=== PATIENT | male | born 1995 | race Native Hawaiian/Other Pacific Islander ===

== ENCOUNTER 2021-08-28 05:12 | Emergency (ER) | payer OTHER ==
[2021-08-28] MEDS ORDERED: KETAMINE 500 MG/10 ML VIAL IM STA (05:21)
--- NOTE | 2021-08-28 05:26 | ED Physician Documentation ---
Face to Face for Restraints - Immediate Situation Face to Face Evaluation Date: 08/28/21 Face to Face Evaluation Time: 05:24 Restraint Situation: Locking, Chemical Patient's Reactions to the Intervention: Fighting restraints, Screaming/Yelling, Demanding - Behavioral Condition Attitude: Guarded Behavior: Uncooperative, Agitated Orientation: Person, Place Mood: Labile - Evaluation Review of Systems: no apparent injuries. SOme slurring of speech. unlabored breathing. No vomiting. Pertinent History/Illicit Drugs/Medications/Results: Intoxicated and depressed from bad news. Threatened to jump off bridge. - Plan Need to Continue or Terminate Violent or Chemical Restraint: See improvement with meds and time.
[2021-08-28 05:40] LABS: BILIRUBIN,URINE NEGATIVE (NEGATIVE); GLUCOSE, URINE (UA) NEGATIVE (NEGATIVE); KETONES,URINE (UA) NEGATIVE (NEGATIVE); LEUKOCYTE ESTERASE, URINE NEGATIVE (NEGATIVE); MUDS CUTOFF CONCENTRATIONS CUTOFF CONC BELOW:; NITRITE,URINE NEGATIVE (NEGATIVE); OCCULT BLOOD,URINE NEGATIVE (NEGATIVE); PROTEIN,URINE NEGATIVE (NEGATIVE); UROBILINOGEN,URINE 0.2 (NORMAL) E.U./dL (NORMAL)
[2021-08-28 05:42] LABS: CLARITY,URINE CLEAR (CLEAR)
[2021-08-28 05:44] LABS: BASOPHILS # (AUTO) 0.1 10^3/uL (0.0-0.1); BASOPHILS % (AUTO) 0.8 %; EOSINOPHILS # (AUTO) 0.1 10^3/uL (0.0-0.7); EOSINOPHILS % (AUTO) 0.8 %; HCT - HEMATOCRIT 42.6 % (42.0-52.0); HGB - HEMOGLOBIN 14.2 g/dL (14.0-18.0); LYMPHOCYTES # (AUTO) 2.8 10^3/uL (1.5-3.5); MEAN CORPUSCULAR HEMOGLOBIN 31.3 pg (27.0-31.0); MEAN CORPUSCULAR HGB CONC 33.3 g/dL (32.0-36.0); MEAN CORPUSCULAR VOLUME 93.8 fL (80.0-94.0); MEAN PLATELET VOLUME 10.4 fL (7.4-11.4); MONOCYTES # (AUTO) 0.8 10^3/uL (0.0-1.0); MONOCYTES % (AUTO) 9.5 %; NEUTROPHILS # (AUTO) 4.7 10^3/uL (1.5-6.6); NEUTROPHILS % (AUTO) 55.5 %; PLT - PLATELET COUNT 242 10^3/uL (130-450); RED BLOOD COUNT 4.54 10^6/uL (4.70-6.10); RED CELL DISTRIBUTION WIDTH 13.5 % (12.0-15.0); WHITE BLOOD COUNT 8.5 x10^3/uL (4.8-10.8)
[2021-08-28 05:50] LABS: AMPHETAMINE SCREEN,URINE NEGATIVE (NEGATIVE); BARBITURATE SCREEN,UR NEGATIVE (NEGATIVE); BENZODIAZEPINES SCREEN, URINE NEGATIVE (NEGATIVE); COCAINE SCREEN URINE NEGATIVE (NEGATIVE); METHADONE SCREEN, URINE NEGATIVE (NEGATIVE); METHAMPHETAMINES SCREEN, URINE NEGATIVE (NEGATIVE); OPIATE SCREEN, URINE NEGATIVE (NEGATIVE); OXYCODONE SCREEN, URINE NEGATIVE (NEGATIVE); PROPOXYPHENE SCREEN, URINE NEGATIVE (NEGATIVE); THC CANNABINOID SCREEN, URINE NEGATIVE (NEGATIVE); TRICYCLIC ANTIDEPRESSANT,URINE NEGATIVE (NEGATIVE)
[2021-08-28 06:06] LABS: ACETAMINOPHEN < 10 ug/mL (10-30); ALBUMIN 4.6 g/dL (3.2-5.5); ALBUMIN/GLOBULIN RATIO 1.5 (1.0-2.2); ALKALINE PHOSPHATASE 56 IU/L (42-121); ALT ALANINE AMINOTRANSFERASE 22 IU/L (10-60); AST ASPARTATE AMINOTRANSFERASE 30 IU/L (10-42); BILIRUBIN,TOTAL 0.6 mg/dL (0.2-1.0); BUN - BLOOD UREA NITROGEN 13 mg/dL (6-20); CALCIUM 8.7 mg/dL (8.5-10.3); CARBON DIOXIDE - CO2 24 mmol/L (21-32); CHLORIDE 103 mmol/L (101-111); CREATININE 1.1 mg/dL (0.6-1.2); ETOH - ETHANOL 260.9 mg/dL; GFR - MDRD 81 (>89); GLUCOSE 104 mg/dL (70-100); LIPASE 27 U/L (22-51); SALICYLATE < 6.0 mg/dL; SODIUM 142 mmol/L (135-145); TOTAL PROTEIN 7.7 g/dL (6.7-8.2)
--- NOTE | 2021-08-28 06:34 | ED Physician Documentation ---
PD HPI MHE - Stated complaint Stated Complaint: SI/ETOH - Chief complaint Chief Complaint: MHE - History obtained from History obtained from: Patient, EMS - History of Present Illness Primary symptom: Suicidal ideation, Aggressive behavior, Other (intoxicated) Timing - onset: How many hours ago (few), Today Contributing factors: Sig other, Other (Report is patient got letter from his girlfriend that she was breaking up with him. He got drunk and expressed suicidality that he was going to go to the bridge and jump off. Brought by EMS. Combative en route and needed restraints and chemical sedation. no history of depression.). No: Substance abuse - ETOH, Substance abuse - drugs Similar symptoms before: Has not had sx before Recently seen: Not recently seen Review of Systems Unable to obtain: Intoxicated, Uncooperative Respiratory: denies: Dyspnea GI: denies: Vomiting Skin: denies: Laceration (s) Neurologic: denies: Head injury PD PAST MEDICAL HISTORY - Past Medical History Cardiovascular: None Respiratory: None Neuro: None Endocrine/Autoimmune: None - Present Medications Home Medications: Ambulatory Orders Medication Instructions Recorded Confirmed No Known Home Medications 08/28/21 08/28/21 - Allergies Allergies/Adverse Reactions: Allergies Allergy/AdvReac Type Severity Reaction Status Date / Time Unable to Assess Allergy Verified 08/28/21 05:31 PD ED PE NORMAL - Vitals Vital signs reviewed: Yes - General General: Well developed/nourished, Other. No: Alert and oriented X 3 (some slurring speech c/w intoxicated. Labile emotions of calm then fighting against restraints, biting at them. Worked loose from one wrist and was grabbing at other restraint and providers. Trying to sit up and rock the cart. Not receptive to verbal de-escalation or calming. ) - HEENT HEENT: Atraumatic - Neck Neck: Supple, no meningeal sign, No adenopathy - Cardiac Cardiac: RRR, No murmur - Respiratory Respiratory: Clear bilaterally - Abdomen Abdomen: Soft, Non tender, Non distended - Derm Derm: Normal color, Warm and dry - Neuro Neuro: No: Alert and oriented X 3 (oriented to person and perceives he is in an ER. Not aware of time/month or at least not focused enough to answer. ) Eye Opening: Spontaneous Motor: Localizes to Pain Verbal: Confused GCS Score: 13 Results - Vitals Vitals: Vital Signs - 24 hr 10/08/21 10/08/21 10/08/21 05:20 05:24 05:28 Temperature 97.1 C H Heart Rate 95 102 H 122 H Respiratory 18 18 22 Rate Blood Pressure 147/96 H 160/95 H O2 Saturation 95 98 96 08/28/21 08/28/21 08/28/21 05:36 05:42 06:36 Temperature 98.8 C H Heart Rate 106 H 115 H Respiratory 14 20 17 Rate Blood Pressure 158/96 H 158/98 H 123/73 O2 Saturation 95 95 93 08/28/21 07:06 Temperature Heart Rate 110 H Respiratory Rate Blood Pressure 117/68 O2 Saturation Oxygen O2 Source Room air - Labs Labs: Laboratory Tests 08/28/21 08/28/21 08/28/21 05:35 05:36 05:36 WBC 8.5 RBC 4.54 L Hgb 14.2 Hct 42.6 MCV 93.8 MCH 31.3 H MCHC 33.3 RDW 13.5 Plt Count 242 MPV 10.4 Neut # (Auto) 4.7 Lymph # (Auto) 2.8 [place] # (Auto) 0.8 Eos # (Auto) 0.1 Baso # (Auto) 0.1 Absolute Nucleated RBC 0.00 Nucleated RBC % 0.0 Sodium 142 Potassium 3.0 L Chloride 103 Carbon Dioxide 24 Anion Gap 15.0 H BUN 13 Creatinine 1.1 Estimated GFR (MDRD) 81 L Glucose 104 H Calcium 8.7 Total Bilirubin 0.6 AST 30 ALT 22 Alkaline Phosphatase 56 Total Protein 7.7 Albumin 4.6 Globulin 3.1 Albumin/Globulin Ratio 1.5 Lipase 27 TSH Urine Color COLORLESS Urine Clarity CLEAR Urine pH 6.0 Ur Specific [place] <=1.005 Urine Protein NEGATIVE Urine Glucose (UA) NEGATIVE Urine Ketones NEGATIVE Urine Occult Blood NEGATIVE Urine Nitrite NEGATIVE Urine Bilirubin NEGATIVE Urine Urobilinogen 0.2 (NORMAL) Ur Leukocyte Esterase NEGATIVE Ur Microscopic Review NOT INDICATED Urine Culture Comments NOT INDICATED Salicylates < 6.0 Urine Opiates Screen NEGATIVE Ur Oxycodone Screen NEGATIVE Urine Methadone Screen NEGATIVE Ur Propoxyphene Screen NEGATIVE Acetaminophen < 10 L Ur Barbiturates Screen NEGATIVE Ur Tricyclics Screen NEGATIVE Ur Phencyclidine Scrn NEGATIVE Ur Amphetamine Screen NEGATIVE U Methamphetamines Scrn NEGATIVE U Benzodiazepines Scrn NEGATIVE Urine Cocaine Screen NEGATIVE U Cannabinoids Screen NEGATIVE Ethyl Alcohol 260.9 08/28/21 05:36 WBC RBC Hgb Hct MCV MCH MCHC RDW Plt Count MPV Neut # (Auto) Lymph # (Auto) [place] # (Auto) Eos # (Auto) Baso # (Auto) Absolute Nucleated RBC Nucleated RBC % Sodium Potassium Chloride Carbon Dioxide Anion Gap BUN Creatinine Estimated GFR (MDRD) Glucose Calcium Total Bilirubin AST ALT Alkaline Phosphatase Total Protein Albumin Globulin Albumin/Globulin Ratio Lipase TSH 1.33 Urine Color Urine Clarity Urine pH Ur Specific [place] Urine Protein Urine Glucose (UA) Urine Ketones Urine Occult Blood Urine Nitrite Urine Bilirubin Urine Urobilinogen Ur Leukocyte Esterase Ur Microscopic Review Urine Culture Comments Salicylates Urine Opiates Screen Ur Oxycodone Screen Urine Methadone Screen Ur Propoxyphene Screen Acetaminophen Ur Barbiturates Screen Ur Tricyclics Screen Ur Phencyclidine Scrn Ur Amphetamine Screen U Methamphetamines Scrn U Benzodiazepines Scrn Urine Cocaine Screen U Cannabinoids Screen Ethyl Alcohol PD MEDICAL DECISION MAKING - ED course Complexity details: reviewed results, considered differential (seems intoxicated but still coordinated enough to try working off restraints, but not enough to focus in conversation. Emotionally labile and loud then quiet, calm then abruptly thrashing. ), d/w patient ED course: Patient was calmer more relaxed after the ketamine. He did sleep for couple of hours. Plan for repeat BA later in eval by social work. Care was given over to the oncoming ER physician at change of shift. Departure - Departure Clinical Impression: Reactive depression (situational), Suicidal ideation Alcohol intoxication Qualifiers: Complication of substance-induced condition: uncomplicated Qualified Code(s): F10.920 - Alcohol use, unspecified with intoxication, uncomplicated Condition: Stable Record reviewed to determine appropriate education?: Yes
--- NOTE | 2021-08-28 07:45 | ED Physician Documentation ---
ED Addendum - Addendum Addendum: 08/28/21 07:[address] Chatman at shift change. Briefly this is a 26-year-old gentleman who is active duty in the [employer] who presented intoxicated with stated suicidal intent while intoxicated. He had been restrained overnight. On my evaluation now, he is still quite intoxicated but verbally redirectable which sounds like he was not earlier. Anticipate repeating blood alcohol level approximately 1:30 PM and reevaluating. 08/28/21 08:48 As he was sobering up he was having a lot of anxiety and requested something for that and was medicated with Haldol. This was not for restraint. 08/28/21 17:36 Took him a prolonged period of time to wear off his alcohol but at this point he is clinically sober. Blood alcohol from about an hour ago was 91. He does not really recall what happened last night but denies ongoing SI or HI. He admits to drinking heavily and very frequently. With his permission I spoke with his chief and they probably will be enrolling him in alcohol rehab. They will come and pick him up. Disposition: Discharged home Condition: Stable Diagnoses 1. Alcohol intoxication 2. Altered mental status 3. Grief reaction
[2021-08-28] MEDS ORDERED: HALOPERIDOL 5 MG/ML VIAL IVP ONE (08:47)
[2021-08-28] MEDS ORDERED: HALOPERIDOL 5 MG/ML VIAL IM STA (09:13)
[2021-08-28 17:50] VITALS: BP 134/84
== END 2021-08-28 17:58 | disposition home or self-care (01) ==
LOC: EDBD → ED 05:12
DX: F10.920 Alcohol use, unspecified with intoxication, uncomplicated (principal); F43.24 Adjustment disorder with disturbance of conduct; F43.23 Adjustment disorder with mixed anxiety and depressed mood; R45.851 Suicidal ideations; R00.0 Tachycardia, unspecified; Z78.1 Physical restraint status
CPT/HCPCS: 36415; 51701; 80053; 80306; 80307; 80320; 80329; 81001; 81003; 83690; 84443; 85025; 87086; 93005; 99283

== ENCOUNTER 2021-08-31 02:30 | Emergency (ER) | payer OTHER ==
[2021-08-31 02:47] LABS: MUDS CUTOFF CONCENTRATIONS CUTOFF CONC BELOW:
[2021-08-31 02:49] LABS: BASOPHILS # (AUTO) 0.1 10^3/uL (0.0-0.1); BASOPHILS % (AUTO) 0.6 %; EOSINOPHILS % (AUTO) 0.4 %; HCT - HEMATOCRIT 45.4 % (42.0-52.0); HGB - HEMOGLOBIN 15.2 g/dL (14.0-18.0); LYMPHOCYTES # (AUTO) 1.7 10^3/uL (1.5-3.5); LYMPHOCYTES % (AUTO) 19.6 %; MEAN CORPUSCULAR HEMOGLOBIN 31.6 pg (27.0-31.0); MEAN CORPUSCULAR HGB CONC 33.5 g/dL (32.0-36.0); MEAN CORPUSCULAR VOLUME 94.4 fL (80.0-94.0); MEAN PLATELET VOLUME 10.9 fL (7.4-11.4); MONOCYTES # (AUTO) 0.6 10^3/uL (0.0-1.0); MONOCYTES % (AUTO) 7.5 %; NEUTROPHILS # (AUTO) 6.1 10^3/uL (1.5-6.6); NEUTROPHILS % (AUTO) 71.5 %; PLT - PLATELET COUNT 227 10^3/uL (130-450); RED BLOOD COUNT 4.81 10^6/uL (4.70-6.10); RED CELL DISTRIBUTION WIDTH 13.5 % (12.0-15.0); WHITE BLOOD COUNT 8.5 x10^3/uL (4.8-10.8)
[2021-08-31 02:57] LABS: AMPHETAMINE SCREEN,URINE NEGATIVE (NEGATIVE); BARBITURATE SCREEN,UR NEGATIVE (NEGATIVE); BENZODIAZEPINES SCREEN, URINE NEGATIVE (NEGATIVE); COCAINE SCREEN URINE NEGATIVE (NEGATIVE); METHADONE SCREEN, URINE NEGATIVE (NEGATIVE); METHAMPHETAMINES SCREEN, URINE NEGATIVE (NEGATIVE); OPIATE SCREEN, URINE NEGATIVE (NEGATIVE); OXYCODONE SCREEN, URINE NEGATIVE (NEGATIVE); THC CANNABINOID SCREEN, URINE NEGATIVE (NEGATIVE); TRICYCLIC ANTIDEPRESSANT,URINE NEGATIVE (NEGATIVE)
[2021-08-31 02:58] LABS: PROPOXYPHENE SCREEN, URINE NEGATIVE (NEGATIVE)
[2021-08-31 03:00] LABS: ACETAMINOPHEN < 10 ug/mL (10-30); BUN - BLOOD UREA NITROGEN 19 mg/dL (6-20); CALCIUM 9.1 mg/dL (8.5-10.3); CARBON DIOXIDE - CO2 27 mmol/L (21-32); CHLORIDE 103 mmol/L (101-111); CREATININE 0.9 mg/dL (0.6-1.2); ETOH - ETHANOL 181.9 mg/dL; GFR - MDRD 102 (>89); GLUCOSE 97 mg/dL (70-100); POTASSIUM 3.6 mmol/L (3.5-5.0); SALICYLATE < 6.0 mg/dL; SODIUM 143 mmol/L (135-145)
--- NOTE | 2021-08-31 03:33 | ED Physician Documentation ---
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 This evening when he called to talk to her a male answered the phone and the patient had words with the male. He was intoxicated and became suicidal. He punched a wall with both fists. He had a plan to jump off of the bridge. Review of Systems Constitutional: denies: Fever Eyes: denies: Decreased vision Ears: denies: Ear pain Nose: denies: Congestion Throat: denies: Sore throat Cardiac: denies: Chest pain / pressure Respiratory: denies: Dyspnea, Cough GI: denies: Abdominal Pain, Nausea, Vomiting, Diarrhea : denies: Dysuria, Frequency Skin: denies: Rash Musculoskeletal: denies: Neck pain, Back pain, Extremity pain Neurologic: denies: Generalized weakness, Focal weakness, Numbness Psychiatric: reports: Depressed, Suicidal, Insomnia PD PAST MEDICAL HISTORY - Past Medical History Past Medical History: Yes Cardiovascular: None Respiratory: None Neuro: None Endocrine/Autoimmune: None Psych: Depression, Anxiety - Past Surgical History Past Surgical History: No - Present Medications Home Medications: Ambulatory Orders Medication Instructions Recorded Confirmed No Known Home Medications 08/28/21 08/31/21 - Allergies Allergies/Adverse Reactions: Allergies Allergy/AdvReac Type Severity Reaction Status Date / Time No Known Drug Allergies Allergy Verified 08/31/21 02:34 - Social History Does the pt smoke?: No Smoking Status: Never smoker Does the pt drink ETOH?: Yes Does the pt have substance abuse?: No - Immunizations Immunizations are current?: Yes PD ED PE NORMAL - Vitals Vital signs reviewed: Yes - General General: Alert and oriented X 3, Well developed/nourished, Other (teary eyed male with AOB) - HEENT HEENT: Atraumatic, PERRL, EOMI - Neck Neck: Supple, no meningeal sign, No bony TTP - Cardiac Cardiac: RRR, No murmur - Respiratory Respiratory: No respiratory distress, Clear bilaterally - Abdomen Abdomen: Normal bowel sounds, Soft, Non tender, Non distended, No organomegaly - Derm Derm: Normal color, Warm and dry, No rash - Extremities Extremities: No deformity, No edema, Other (mild swelling and tenderness to the knuckles bilaterally ) - Neuro Neuro: Alert and oriented X 3, peach grower 2-12 intact, No motor deficit, No sensory deficit, Normal speech Eye Opening: Spontaneous Motor: Obeys Commands Verbal: Oriented GCS Score: 15 - Psych Psych: Other (mood is withdrawn and affect is flat. ) Results - Vitals Vitals: Vital Signs - 24 hr 08/31/21 08/31/21 02:34 02:40 Temperature 36.3 C L 36.3 C L Heart Rate 97 97 Respiratory 17 17 Rate Blood Pressure 164/95 H 164/95 H O2 Saturation 97 97 Oxygen O2 Source Room air - EKG (time done) 0342 Rate: Rate (enter#) (85) Rhythm: LAE Ischemia: ST elevation c/w repol, Q waves Compare to prior EKG: Unchanged from prior EKG (SPT 08-28-21 no sig changes .) Computer interpretation: Agree with computer - Labs Labs: Laboratory Tests 08/31/21 08/31/21 08/31/21 02:35 02:42 02:42 WBC 8.5 RBC 4.81 Hgb 15.2 Hct 45.4 MCV 94.4 H MCH 31.6 H MCHC 33.5 RDW 13.5 Plt Count 227 MPV 10.9 Neut # (Auto) 6.1 Lymph # (Auto) 1.7 [place] # (Auto) 0.6 Eos # (Auto) 0.0 Baso # (Auto) 0.1 Absolute Nucleated RBC 0.00 Nucleated RBC % 0.0 Sodium 143 Potassium 3.6 Chloride 103 Carbon Dioxide 27 Anion Gap 13.0 BUN 19 Creatinine 0.9 Estimated GFR (MDRD) 102 Glucose 97 Calcium 9.1 Troponin I High Sens Nasal Adenovirus (PCR) Nasal B. parapertussis DNA (PCR) Nasal Coronavir 229E PCR Nasal Coronavir HKU1 PCR Nasal Coronavir NL63 PCR Nasal Coronavir OC43 PCR Nasal Enterovir/Rhinovir PCR Nasal Influenza B PCR Nasal Influenza A PCR Nasal Parainfluen 1 PCR Nasal Parainfluen 2 PCR Nasal Parainfluen 3 PCR Nasal Parainfluen 4 PCR Nasal RSV (PCR) Nasal B.pertussis DNA PCR Nasal C.pneumoniae (PCR) Waqar Human Metapneumo PCR Nasal M.pneumoniae (PCR) Nasal SARS-CoV-2 (PCR) Salicylates < 6.0 Urine Opiates Screen NEGATIVE Ur Oxycodone Screen NEGATIVE Urine Methadone Screen NEGATIVE Ur Propoxyphene Screen NEGATIVE Acetaminophen < 10 L Ur Barbiturates Screen NEGATIVE Ur Tricyclics Screen NEGATIVE Ur Phencyclidine Scrn NEGATIVE Ur Amphetamine Screen NEGATIVE U Methamphetamines Scrn NEGATIVE U Benzodiazepines Scrn NEGATIVE Urine Cocaine Screen NEGATIVE U Cannabinoids Screen NEGATIVE Ethyl Alcohol 181.9 08/31/21 08/31/21 02:42 03:11 WBC RBC Hgb Hct MCV MCH MCHC RDW Plt Count MPV Neut # (Auto) Lymph # (Auto) [place] # (Auto) Eos # (Auto) Baso # (Auto) Absolute Nucleated RBC Nucleated RBC % Sodium Potassium Chloride Carbon Dioxide Anion Gap BUN Creatinine Estimated GFR (MDRD) Glucose Calcium Troponin I High Sens 5.7 Nasal Adenovirus (PCR) NOT DETECTED Nasal B. parapertussis DNA (PCR) NOT DETECTED Nasal Coronavir 229E PCR NOT DETECTED Nasal Coronavir HKU1 PCR NOT DETECTED Nasal Coronavir NL63 PCR NOT DETECTED Nasal Coronavir OC43 PCR NOT DETECTED Nasal Enterovir/Rhinovir PCR NOT DETECTED Nasal Influenza B PCR NOT DETECTED Nasal Influenza A PCR NOT DETECTED Nasal Parainfluen 1 PCR NOT DETECTED Nasal Parainfluen 2 PCR NOT DETECTED Nasal Parainfluen 3 PCR NOT DETECTED Nasal Parainfluen 4 PCR NOT DETECTED Nasal RSV (PCR) NOT DETECTED Nasal B.pertussis DNA PCR NOT DETECTED Nasal C.pneumoniae (PCR) NOT DETECTED [place] Human Metapneumo PCR NOT DETECTED Nasal M.pneumoniae (PCR) NOT DETECTED Nasal SARS-CoV-2 (PCR) NOT DETECTED Salicylates Urine Opiates Screen Ur Oxycodone Screen Urine Methadone Screen Ur Propoxyphene Screen Acetaminophen Ur Barbiturates Screen Ur Tricyclics Screen Ur Phencyclidine Scrn Ur Amphetamine Screen U Methamphetamines Scrn U Benzodiazepines Scrn Urine Cocaine Screen U Cannabinoids Screen Ethyl Alcohol - Rads (name of study) hands bilat Radiology: Prelim report reviewed (Impression: 1. 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 Nader Chatman. A second ETOH is ordered for 8am .
[2021-08-31] MEDS ORDERED: diphenhydrAMINE 25 MG CAPSULE PO STA (03:42)
[2021-08-31 04:08] LABS: B. PARAPERTUSSIS- RESP PCR PAN NOT DETECTED; B. PERTUSSIS- RESP PCR PANEL NOT DETECTED; C. PNEUMONIAE- RESP PCR PANEL NOT DETECTED; CORONAVIRUS 229E-RESP PCR NOT DETECTED; CORONAVIRUS HKU1-RESP PCR NOT DETECTED; CORONAVIRUS NL63-RESP PCR NOT DETECTED; CORONAVIRUS OC43-RESP PCR NOT DETECTED; HUMAN METAPNEUMOVIRUS NOT DETECTED; INFLUENZA A- RESP PCR PANEL NOT DETECTED; INFLUENZA B - RESP PCR PANEL NOT DETECTED; M. PNEUMONIAE- RESP PCR PANEL NOT DETECTED; PARAINFLUENZA VIRUS 1 NOT DETECTED; PARAINFLUENZA VIRUS 2 NOT DETECTED; PARAINFLUENZA VIRUS 3 NOT DETECTED; PARAINFLUENZA VIRUS 4 NOT DETECTED; RHINOVIRUS/ENTEROVIRUS NOT DETECTED; RSV- RESP PCR PANEL NOT DETECTED; SARS-CoV-2 -RESP PCR PANEL NOT DETECTED
--- NOTE | 2021-08-31 08:12 | XRAY Report ---
PROCEDURE: Hand 2 View BILAT INDICATIONS: punched wall TECHNIQUE: 2 views of the bilateral hand(s) acquired. COMPARISON: None FINDINGS: No fracture or dislocation. Soft tissues are unremarkable. IMPRESSION: No acute finding. Reviewed by: Renzo Antonio MD on 08/31/2021 8:11 AM PDT Approved by: Renzo Antonio MD on 08/31/2021 8:11 AM PDT Station ID: [id number]
[2021-08-31] MEDS ORDERED: PHENobarbital 65 MG/ML VIAL IM STA (09:52)
[2021-08-31] MEDS ORDERED: LORazepam 1 MG TABLET PO STA (09:52)
--- NOTE | 2021-08-31 11:30 | ED Physician Documentation ---
ED Addendum - Addendum Addendum: 08/31/21 11:29The patient was calm and interacting well on change of shift. He was still interested in acute treatment for depression and also alcohol use. Social work talked with him and was able to arrange voluntary admission to [facility] health unit. Patient is agreeable and will be transferred by BLS. Disposition transfer to psychiatric facility Diagnoses: 1. Acute reactive depression 2. Suicidal ideation 3. Alcohol ism.
[2021-08-31 13:50] VITALS: BP 126/79
== END 2021-08-31 13:47 ==
LOC: EDUNIT# → ED 02:30
DX: F32.9 Major depressive disorder, single episode, unspecified (principal); R45.851 Suicidal ideations; Z20.822 Contact with and (suspected) exposure to COVID-19
CPT/HCPCS: 0202U; 36415; 73120; 80048; 80306; 80307; 80320; 80329; 84484; 85025; 93005; 96372; 99283; 99285; A9270

== ENCOUNTER 2021-09-13 02:46 | Outpatient (CLI) | payer OTHER | END 2021-09-13 02:47 | disposition critical access hospital (66) | LOC: EMS 02:46 | DX: T43.222A Poisoning by selective serotonin reuptake inhibitors, intentional self-harm, initial encounter (principal); T43.212A Poisoning by selective serotonin and norepinephrine reuptake inhibitors, intentional self-harm, initial encounter; T43.592A Poisoning by other antipsychotics and neuroleptics, intentional self-harm, initial encounter; R53.83 Other fatigue; Y92.133 Barracks on military base as the place of occurrence of the external cause | CPT/HCPCS: A0425; A0427 ==

== ENCOUNTER 2021-09-13 03:04 | Emergency (ER) | payer OTHER ==
[2021-09-13 03:26] LABS: MUDS CUTOFF CONCENTRATIONS CUTOFF CONC BELOW:
[2021-09-13 03:27] LABS: BASOPHILS # (AUTO) 0.1 10^3/uL (0.0-0.1); BASOPHILS % (AUTO) 0.9 %; EOSINOPHILS # (AUTO) 0.1 10^3/uL (0.0-0.7); EOSINOPHILS % (AUTO) 1.3 %; HCT - HEMATOCRIT 42.1 % (42.0-52.0); LYMPHOCYTES # (AUTO) 1.1 10^3/uL (1.5-3.5); LYMPHOCYTES % (AUTO) 21.2 %; MEAN CORPUSCULAR HEMOGLOBIN 31.7 pg (27.0-31.0); MEAN CORPUSCULAR HGB CONC 33.3 g/dL (32.0-36.0); MEAN CORPUSCULAR VOLUME 95.2 fL (80.0-94.0); MONOCYTES # (AUTO) 0.7 10^3/uL (0.0-1.0); MONOCYTES % (AUTO) 12.8 %; NEUTROPHILS # (AUTO) 3.4 10^3/uL (1.5-6.6); NEUTROPHILS % (AUTO) 63.6 %; PLT - PLATELET COUNT 188 10^3/uL (130-450); RED BLOOD COUNT 4.42 10^6/uL (4.70-6.10); RED CELL DISTRIBUTION WIDTH 12.9 % (12.0-15.0); WHITE BLOOD COUNT 5.3 x10^3/uL (4.8-10.8)
[2021-09-13 03:31] LABS: BILIRUBIN,URINE NEGATIVE (NEGATIVE); CLARITY,URINE CLEAR (CLEAR); GLUCOSE, URINE (UA) NEGATIVE (NEGATIVE); KETONES,URINE (UA) NEGATIVE (NEGATIVE); LEUKOCYTE ESTERASE, URINE NEGATIVE (NEGATIVE); NITRITE,URINE NEGATIVE (NEGATIVE); OCCULT BLOOD,URINE NEGATIVE (NEGATIVE); PROTEIN,URINE NEGATIVE (NEGATIVE); UROBILINOGEN,URINE 0.2 (NORMAL) E.U./dL (NORMAL)
[2021-09-13 03:41] LABS: ACETAMINOPHEN < 10 ug/mL (10-30); SALICYLATE < 6.0 mg/dL
[2021-09-13 03:41] LABS: AMPHETAMINE SCREEN,URINE NEGATIVE (NEGATIVE); BARBITURATE SCREEN,UR NEGATIVE (NEGATIVE); BENZODIAZEPINES SCREEN, URINE NEGATIVE (NEGATIVE); COCAINE SCREEN URINE NEGATIVE (NEGATIVE); METHADONE SCREEN, URINE NEGATIVE (NEGATIVE); METHAMPHETAMINES SCREEN, URINE NEGATIVE (NEGATIVE); OPIATE SCREEN, URINE NEGATIVE (NEGATIVE); OXYCODONE SCREEN, URINE NEGATIVE (NEGATIVE); PROPOXYPHENE SCREEN, URINE NEGATIVE (NEGATIVE); THC CANNABINOID SCREEN, URINE NEGATIVE (NEGATIVE); TRICYCLIC ANTIDEPRESSANT,URINE NEGATIVE (NEGATIVE)
--- NOTE | 2021-09-13 03:46 | ED Physician Documentation ---
History of Present Illness - Stated complaint Stated Complaint: OD, SI - Chief complaint Chief Complaint: MHE - History obtained from History obtained from: Patient, EMS - Additonal information Additional information: 26-year-old male with past medical history of depression presents with suicide attempt this evening.Patient pointed a gun to his head in front of a friend and then also took 30 pills of trazodone 100 mg, 60 pills of Vistaril 25 mg, and 30 pills of fluoxetine 10 mg around 1:30 AM. 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 Review of Systems Ten Systems: 10 systems reviewed and negative Constitutional: denies: Fever, Chills Cardiac: reports: Chest pain / pressure Respiratory: denies: Dyspnea GI: denies: Abdominal Pain, Nausea Psychiatric: reports: Depressed, Suicidal. denies: Homicidal, Hallucinations, Anxiety PD PAST MEDICAL HISTORY - Past Medical History Past Medical History: Yes Cardiovascular: None Respiratory: None Neuro: None Endocrine/Autoimmune: None Psych: Depression, Anxiety, Other Other Past Medical History: Suicide Attempt in the pst by suing a gun but a frie nd stopped him from doing it. - Past Surgical History Past Surgical History: No - Present Medications Home Medications: Ambulatory Orders Medication Instructions Recorded Confirmed FLUoxetine [PROzac] 10 mg PO QPM 09/13/21 09/13/21 Trazodone HCl 100 mg PO BID 09/13/21 09/13/21 hydrOXYzine HCL [Hydroxyzine HCl] 25 mg PO Q4HR 09/13/21 09/13/21 - Allergies Allergies/Adverse Reactions: Allergies Allergy/AdvReac Type Severity Reaction Status Date / Time No Known Drug Allergies Allergy Verified 09/13/21 03:21 - Social History Does the pt smoke?: No Smoking Status: Never smoker Does the pt drink ETOH?: Yes Does the pt have substance abuse?: No - Immunizations Immunizations are current?: Yes - POLST Patient has POLST: No PD ED PE NORMAL - Vitals Vital signs reviewed: Yes - General General: Alert and oriented X 3, No acute distress, Well developed/nourished - HEENT HEENT: Atraumatic, PERRL, EOMI - Neck Neck: Supple, no meningeal sign - Cardiac Cardiac: RRR - Respiratory Respiratory: No respiratory distress, Clear bilaterally - Abdomen Abdomen: Non tender, Non distended - Back Back: No spinal TTP - Derm Derm: Normal color, Warm and dry - Extremities Extremities: No deformity - Neuro Neuro: Alert and oriented X 3, No motor deficit, No sensory deficit - Psych Psych: Other (depressed mood and affect. +SI) Results - Vitals Vitals: Vital Signs - 24 hr 09/13/21 09/13/21 09/13/21 03:05 03:10 03:40 Temperature 37.1 C 36.4 C L Heart Rate 63 71 Respiratory 15 15 Rate Blood Pressure 127/82 H 137/80 H Blood Pressure 127/82 H [Left] Blood Pressure 130/60 [Right] O2 Saturation 95 95 09/13/21 09/13/21 09/13/21 03:51 04:09 04:31 Temperature Heart Rate 70 60 63 Respiratory 15 13 11 L Rate Blood Pressure 137/80 H 137/74 H 121/65 Blood Pressure [Left] Blood Pressure [Right] O2 Saturation 94 94 94 09/13/21 09/13/21 05:00 05:30 Temperature Heart Rate 65 67 Respiratory 12 12 Rate Blood Pressure 123/77 122/74 Blood Pressure [Left] Blood Pressure [Right] O2 Saturation 96 94 Oxygen O2 Source Room air - EKG (time done) 0326 Rate: Rate (enter#) (60) Rhythm: NSR [place]: Normal Intervals: Normal VA QRS: Normal Ischemia: ST elevation c/w repol Compare to prior EKG: Unchanged from prior EKG (08/28/21) - Labs Labs: Laboratory Tests 09/13/21 09/13/21 09/13/21 03:11 03:14 03:19 WBC 5.3 RBC 4.42 L Hgb 14.0 Hct 42.1 MCV 95.2 H MCH 31.7 H MCHC 33.3 RDW 12.9 Plt Count 188 MPV 11.0 Neut # (Auto) 3.4 Lymph # (Auto) 1.1 L [place] # (Auto) 0.7 Eos # (Auto) 0.1 Baso # (Auto) 0.1 Absolute Nucleated RBC 0.00 Nucleated RBC % 0.0 Sodium Potassium Chloride Carbon Dioxide Anion Gap BUN Creatinine Estimated GFR (MDRD) Glucose Calcium Magnesium 2.2 Total Bilirubin AST ALT Alkaline Phosphatase Total Protein Albumin Globulin Albumin/Globulin Ratio Lipase TSH Urine Color YELLOW Urine Clarity CLEAR Urine pH 6.0 Ur Specific [place] >=1.030 H Urine Protein NEGATIVE Urine Glucose (UA) NEGATIVE Urine Ketones NEGATIVE Urine Occult Blood NEGATIVE Urine Nitrite NEGATIVE Urine Bilirubin NEGATIVE Urine Urobilinogen 0.2 (NORMAL) Ur Leukocyte Esterase NEGATIVE Ur Microscopic Review NOT INDICATED Urine Culture Comments NOT INDICATED Nasal Adenovirus (PCR) Nasal B. parapertussis DNA (PCR) Nasal Coronavir 229E PCR Nasal Coronavir HKU1 PCR Nasal Coronavir NL63 PCR Nasal Coronavir OC43 PCR Nasal Enterovir/Rhinovir PCR Nasal Influenza B PCR Nasal Influenza A PCR Nasal Parainfluen 1 PCR Nasal Parainfluen 2 PCR Nasal Parainfluen 3 PCR Nasal Parainfluen 4 PCR Nasal RSV (PCR) Nasal B.pertussis DNA PCR Nasal C.pneumoniae (PCR) [place] Human Metapneumo PCR Nasal M.pneumoniae (PCR) Nasal SARS-CoV-2 (PCR) Salicylates Urine Opiates Screen NEGATIVE Ur Oxycodone Screen NEGATIVE Urine Methadone Screen NEGATIVE Ur Propoxyphene Screen NEGATIVE Acetaminophen Ur Barbiturates Screen NEGATIVE Ur Tricyclics Screen NEGATIVE Ur Phencyclidine Scrn NEGATIVE Ur Amphetamine Screen NEGATIVE U Methamphetamines Scrn NEGATIVE U Benzodiazepines Scrn NEGATIVE Urine Cocaine Screen NEGATIVE U Cannabinoids Screen NEGATIVE Ethyl Alcohol 09/13/21 09/13/21 09/13/21 03:19 03:19 03:24 WBC RBC Hgb Hct MCV MCH MCHC RDW Plt Count MPV Neut # (Auto) Lymph # (Auto) [place] # (Auto) Eos # (Auto) Baso # (Auto) Absolute Nucleated RBC Nucleated RBC % Sodium 138 Potassium 3.8 Chloride 101 Carbon Dioxide 28 Anion Gap 9.0 BUN 16 Creatinine 1.2 Estimated GFR (MDRD) 73 L Glucose 98 Calcium 9.1 Magnesium Total Bilirubin 0.3 AST 22 ALT 25 Alkaline Phosphatase 57 Total Protein 7.4 Albumin 4.3 Globulin 3.1 Albumin/Globulin Ratio 1.4 Lipase 25 TSH 3.06 Urine Color Urine Clarity Urine pH Ur Specific [place] Urine Protein Urine Glucose (UA) Urine Ketones Urine Occult Blood Urine Nitrite Urine Bilirubin Urine Urobilinogen Ur Leukocyte Esterase Ur Microscopic Review Urine Culture Comments Nasal Adenovirus (PCR) NOT DETECTED Nasal B. parapertussis DNA (PCR) NOT DETECTED Nasal Coronavir 229E PCR NOT DETECTED Nasal Coronavir HKU1 PCR NOT DETECTED Nasal Coronavir NL63 PCR NOT DETECTED Nasal Coronavir OC43 PCR NOT DETECTED Nasal Enterovir/Rhinovir PCR NOT DETECTED Nasal Influenza B PCR NOT DETECTED Nasal Influenza A PCR NOT DETECTED Nasal Parainfluen 1 PCR NOT DETECTED Nasal Parainfluen 2 PCR NOT DETECTED Nasal Parainfluen 3 PCR NOT DETECTED Nasal Parainfluen 4 PCR NOT DETECTED Nasal RSV (PCR) NOT DETECTED Nasal B.pertussis DNA PCR NOT DETECTED Nasal C.pneumoniae (PCR) NOT DETECTED Waqar Human Metapneumo PCR NOT DETECTED Nasal M.pneumoniae (PCR) NOT DETECTED Nasal SARS-CoV-2 (PCR) NOT DETECTED Salicylates < 6.0 Urine Opiates Screen Ur Oxycodone Screen Urine Methadone Screen Ur Propoxyphene Screen Acetaminophen < 10 L Ur Barbiturates Screen Ur Tricyclics Screen Ur Phencyclidine Scrn Ur Amphetamine Screen U Methamphetamines Scrn U Benzodiazepines Scrn Urine Cocaine Screen U Cannabinoids Screen Ethyl Alcohol < 5.0 PD MEDICAL DECISION MAKING - ED course ED course: JESSICA turner d/claudio jacobo, pharmacist with poison control who recommends max observation 8h. vistaril and trazodone cause seizures and hypotension in overdose. combination of meds may cause agitation. no indication for activated charcoal or whole bowel irrigation. Patient to be observed until 09:30am then will need psych evaluation if medically cleared. Currently on 1:[address] observation[address] patient endorsed to [address] Rodriguez, daytime ED doc.
[2021-09-13 03:49] LABS: ALBUMIN 4.3 g/dL (3.2-5.5); ALBUMIN/GLOBULIN RATIO 1.4 (1.0-2.2); ALKALINE PHOSPHATASE 57 IU/L (42-121); ALT ALANINE AMINOTRANSFERASE 25 IU/L (10-60); AST ASPARTATE AMINOTRANSFERASE 22 IU/L (10-42); BILIRUBIN,TOTAL 0.3 mg/dL (0.2-1.0); BUN - BLOOD UREA NITROGEN 16 mg/dL (6-20); CALCIUM 9.1 mg/dL (8.5-10.3); CARBON DIOXIDE - CO2 28 mmol/L (21-32); CHLORIDE 101 mmol/L (101-111); CREATININE 1.2 mg/dL (0.6-1.2); ETOH - ETHANOL < 5.0 mg/dL; GFR - MDRD 73 (>89); GLUCOSE 98 mg/dL (70-100); LIPASE 25 U/L (22-51); POTASSIUM 3.8 mmol/L (3.5-5.0); SODIUM 138 mmol/L (135-145); TOTAL PROTEIN 7.4 g/dL (6.7-8.2)
[2021-09-13 04:27] LABS: B. PARAPERTUSSIS- RESP PCR PAN NOT DETECTED; B. PERTUSSIS- RESP PCR PANEL NOT DETECTED; C. PNEUMONIAE- RESP PCR PANEL NOT DETECTED; CORONAVIRUS 229E-RESP PCR NOT DETECTED; CORONAVIRUS HKU1-RESP PCR NOT DETECTED; CORONAVIRUS NL63-RESP PCR NOT DETECTED; CORONAVIRUS OC43-RESP PCR NOT DETECTED; HUMAN METAPNEUMOVIRUS NOT DETECTED; INFLUENZA A- RESP PCR PANEL NOT DETECTED; INFLUENZA B - RESP PCR PANEL NOT DETECTED; M. PNEUMONIAE- RESP PCR PANEL NOT DETECTED; PARAINFLUENZA VIRUS 1 NOT DETECTED; PARAINFLUENZA VIRUS 2 NOT DETECTED; PARAINFLUENZA VIRUS 3 NOT DETECTED; PARAINFLUENZA VIRUS 4 NOT DETECTED; RHINOVIRUS/ENTEROVIRUS NOT DETECTED; RSV- RESP PCR PANEL NOT DETECTED; SARS-CoV-2 -RESP PCR PANEL NOT DETECTED
[2021-09-13] MEDS ORDERED: SODIUM CHLORIDE 0.9% 1,000 ML IV STA (04:35)
--- NOTE | 2021-09-13 07:47 | XRAY Report ---
PROCEDURE: Chest 1 View X-Ray INDICATIONS: chest pain s/p attempted overdose TECHNIQUE: One view of the chest was acquired. COMPARISON: None FINDINGS: Surgical changes and devices: None. Lungs and pleura: No pleural effusions or pneumothorax. Lungs are clear. Mediastinum: Mediastinal contours appear normal. Heart size is normal. Bones and chest wall: No suspicious bony lesions. Overlying soft tissues appear unremarkable. IMPRESSION: No acute cardiopulmonary abnormality Reviewed by: Ronnell Oquendo on 09/13/2021 7:46 AM PDT Approved by: Ronnell Oquendo on 09/13/2021 7:46 AM PDT Station ID: [id number]
--- NOTE | 2021-09-13 12:52 | ED Physician Documentation ---
ED Addendum - Addendum Addendum: 09/13/21 12:51 The patient was signed out to me at change of shift by Dr. Ricardo, pending evaluation by social work and final disposition. The patient was medically clear at 0 930 today. After social work evaluation, patient was felt to need inpatient treatment and patient was amenable to this. He was accepted by Dr. Burnett at [facility].
[2021-09-13 14:29] VITALS: BP 115/65
== END 2021-09-13 15:05 ==
LOC: EDBD → EDUNIT# → ED 03:04
DX: T14.91XA Suicide attempt, initial encounter (principal); T43.212A Poisoning by selective serotonin and norepinephrine reuptake inhibitors, intentional self-harm, initial encounter; T43.592A Poisoning by other antipsychotics and neuroleptics, intentional self-harm, initial encounter; T43.222A Poisoning by selective serotonin reuptake inhibitors, intentional self-harm, initial encounter; Y92.9 Unspecified place or not applicable; F32.9 Major depressive disorder, single episode, unspecified; Z20.822 Contact with and (suspected) exposure to COVID-19
CPT/HCPCS: 0202U; 36415; 71045; 80053; 80306; 80307; 80320; 80329; 81003; 83690; 83735; 84443; 85025; 93005; 96360; 99285; 81001; 87086

== ENCOUNTER 2022-01-30 04:34 | Emergency (ER) | payer OTHER ==
--- NOTE | 2022-01-30 04:25 | ED Physician Documentation ---
PD HPI MHE - Stated complaint Stated Complaint: COMBATIVE/SI - History obtained from History obtained from: EMS - History of Present Illness Primary symptom: Aggressive behavior - Additional information Additional information: [place]IB[place]. [place] when medics [place] , [place] security [place] well as police were already on scene and patient was combative and saying he wanted to kill himself by jumping off the bridge. EMS reports that an alcohol level had been checked prior to their arrival and was .216. Patient required restraints on scene and en route to hospital due to agitation and aggressive, violent behavior. patient arrives to ED in four-point restraints on EMS stretcher and as he is being wheeled down ED hallway towards room 7, he becomes agitated, fighting violently against restraints, almost falling off stretcher despite the restraints. Patient continues with this behavior, fighting against restraints violently and yelling and using expletives. In addition to the restraints, multiple ED staff along with EMS were needed to keep patient from getting out of restraints. He does not provide and answers to the few questions I ask him and he is very much not amenable to multiple attempts by myself and other staff to try to deescalate via redirection, explanation as to need for him to calm down and stop fighting against restraints. He is given 10mg zyprexa IM shortly after arrival Review of Systems Unable to obtain: Intoxicated, Uncooperative PD PAST MEDICAL HISTORY - Past Medical History Other Past Medical History: unobtainable - Present Medications Home Medications: Ambulatory Orders Medication Instructions Recorded Confirmed FLUoxetine [PROzac] 10 mg PO QPM 09/13/21 09/13/21 Trazodone HCl 100 mg PO BID 09/13/21 09/13/21 hydrOXYzine HCL [Hydroxyzine HCl] 25 mg PO Q4HR 09/13/21 09/13/21 - Allergies Allergies/Adverse Reactions: Allergies Allergy/AdvReac Type Severity Reaction Status Date / Time No Known Drug Allergies Allergy Verified 09/13/21 03:21 PD ED PE NORMAL - Vitals Vital signs reviewed: Yes - HEENT HEENT: PERRL - Cardiac Cardiac: No murmur - Respiratory Respiratory: No respiratory distress, Clear bilaterally PD ED PE EXPANDED - General General: Well developed/nourished - Cardiac Cardiac: Tachy, Regular Rhythm - Psych Psych: Intoxicated / AOB, Poor eye contact, Agitated, Combative, Other (repeatedly insisting on removal of restraints, "let me just sit up") Results - Vitals Vitals: Vital Signs - 24 hr 01/30/22 01/30/22 01/30/22 04:42 05:12 05:42 Temperature 36.4 C L Heart Rate 124 H 92 86 Respiratory 32 H 22 15 Rate Blood Pressure 147/67 H 117/48 L 131/72 H O2 Saturation 95 100 94 01/30/22 01/30/22 06:12 09:19 Temperature Heart Rate 90 64 Respiratory 16 14 Rate Blood Pressure 129/75 106/81 H O2 Saturation 97 Oxygen O2 Source Room air - Labs Labs: Laboratory Tests 01/30/22 01/30/22 01/30/22 04:50 04:50 04:55 WBC 7.7 RBC 4.96 Hgb 15.4 Hct 45.3 MCV 91.3 MCH 31.0 MCHC 34.0 RDW 12.5 Plt Count 244 MPV 11.0 Neut # (Auto) 4.2 Lymph # (Auto) 2.6 [place] # (Auto) 0.7 Eos # (Auto) 0.1 Baso # (Auto) 0.1 Absolute Nucleated RBC 0.00 Nucleated RBC % 0.0 Sodium 145 Potassium 3.4 L Chloride 109 Carbon Dioxide 20 L Anion Gap 16.0 H BUN 10 Creatinine 1.1 Estimated GFR (MDRD) 80 L Glucose 110 H Calcium 8.7 Total Bilirubin 0.4 AST 26 ALT 26 Alkaline Phosphatase 59 Total Protein 8.0 Albumin 4.8 Globulin 3.2 Albumin/Globulin Ratio 1.5 Lipase 38 Urine Opiates Screen NEGATIVE Ur Oxycodone Screen NEGATIVE Urine Methadone Screen NEGATIVE Ur Propoxyphene Screen NEGATIVE Ur Barbiturates Screen NEGATIVE Ur Tricyclics Screen NEGATIVE Ur Phencyclidine Scrn NEGATIVE Ur Amphetamine Screen NEGATIVE U Methamphetamines Scrn NEGATIVE U Benzodiazepines Scrn NEGATIVE Urine Cocaine Screen NEGATIVE U Cannabinoids Screen NEGATIVE Ethyl Alcohol 235.9 PD MEDICAL DECISION MAKING - ED course Complexity details: reviewed old records, reviewed results, re-evaluated patient, considered differential ED course: arrives intoxicated and extremely belligerent, violent. he arrives in four point restraints and just as he was about to be brought into his ED room he becomes violent and agitated, nearly falling off of stretcher. He continues to violently pull against all four restraints. He is given 10mg IM zyprexa which eventually had desired effect of sedation. He has been in this ED three times before, all visits were in August 2021 and all three were related to alcohol and/or depression/SI . He was discharged on first visit with tentative plan to try to get into rehab for alcoholism. He was sent voluntarily to [facility] on the second visit and was sent to [facility] (for SI and intentional OD) on the third visit. Care of patient turned over to Dr. Sequeira at end of my shift pending sobriety and reevaluation to ascertain suicidal intent Face to Face for Restraints - Immediate Situation Face to Face Evaluation Date: 01/30/22 Face to Face Evaluation Time: 04:31 Restraint Situation: Locking Patient's Reactions to the Intervention: Fighting restraints - Behavioral Condition Attitude: Indifferent Behavior: Belligerent, Agitated Orientation: Not oriented to person, place, time, and situation (cannot determine orientation; patient does not answer any of my questions ) Mood: Angry - Evaluation Review of Systems: unobtainable; patient is not answering questions appropriately, fighting, swearing Pertinent History/Illicit Drugs/Medications/Results: h/o SI, h/o ED presentation for ethanol intoxication - Plan Need to Continue or Terminate Violent or Chemical Restraint: awake, alert, appropriate in behavior and amenable to conversation
[~2022-01-30 04:34] MED LIST: OLANZapine 10 MG VIAL IM STA
[2022-01-30] MEDS ORDERED: OLANZapine 10 MG VIAL IM ONE (04:37)
[2022-01-30 05:11] LABS: MUDS CUTOFF CONCENTRATIONS CUTOFF CONC BELOW:
[2022-01-30 05:12] LABS: BASOPHILS # (AUTO) 0.1 10^3/uL (0.0-0.1); BASOPHILS % (AUTO) 1.2 %; EOSINOPHILS # (AUTO) 0.1 10^3/uL (0.0-0.7); EOSINOPHILS % (AUTO) 1.2 %; HCT - HEMATOCRIT 45.3 % (42.0-52.0); HGB - HEMOGLOBIN 15.4 g/dL (14.0-18.0); LYMPHOCYTES # (AUTO) 2.6 10^3/uL (1.5-3.5); LYMPHOCYTES % (AUTO) 33.5 %; MEAN CORPUSCULAR VOLUME 91.3 fL (80.0-94.0); MONOCYTES # (AUTO) 0.7 10^3/uL (0.0-1.0); MONOCYTES % (AUTO) 9.2 %; NEUTROPHILS # (AUTO) 4.2 10^3/uL (1.5-6.6); NEUTROPHILS % (AUTO) 54.5 %; PLT - PLATELET COUNT 244 10^3/uL (130-450); RED BLOOD COUNT 4.96 10^6/uL (4.70-6.10); RED CELL DISTRIBUTION WIDTH 12.5 % (12.0-15.0); WHITE BLOOD COUNT 7.7 x10^3/uL (4.8-10.8)
[2022-01-30 05:21] LABS: ALBUMIN 4.8 g/dL (3.2-5.5); ALBUMIN/GLOBULIN RATIO 1.5 (1.0-2.2); BILIRUBIN,TOTAL 0.4 mg/dL (0.2-1.0); CALCIUM 8.7 mg/dL (8.5-10.3); CREATININE 1.1 mg/dL (0.6-1.2); ETOH - ETHANOL 235.9 mg/dL; POTASSIUM 3.4 mmol/L (3.5-5.0)
[2022-01-30 05:22] LABS: AMPHETAMINE SCREEN,URINE NEGATIVE (NEGATIVE); BARBITURATE SCREEN,UR NEGATIVE (NEGATIVE); BENZODIAZEPINES SCREEN, URINE NEGATIVE (NEGATIVE); COCAINE SCREEN URINE NEGATIVE (NEGATIVE); METHADONE SCREEN, URINE NEGATIVE (NEGATIVE); METHAMPHETAMINES SCREEN, URINE NEGATIVE (NEGATIVE); OPIATE SCREEN, URINE NEGATIVE (NEGATIVE); OXYCODONE SCREEN, URINE NEGATIVE (NEGATIVE); THC CANNABINOID SCREEN, URINE NEGATIVE (NEGATIVE); TRICYCLIC ANTIDEPRESSANT,URINE NEGATIVE (NEGATIVE)
[2022-01-30 05:23] LABS: PROPOXYPHENE SCREEN, URINE NEGATIVE (NEGATIVE)
[2022-01-30 17:33] VITALS: BP 150/90
== END 2022-01-30 22:23 | disposition home or self-care (01) ==
LOC: ED 04:34
DX: F10.129 Alcohol abuse with intoxication, unspecified (principal); Y90.7 Blood alcohol level of 200-239 mg/100 ml; Z78.1 Physical restraint status
CPT/HCPCS: 36415; 51701; 80053; 80306; 80320; 83690; 85025; 99281; 99285

== ENCOUNTER 2022-02-04 08:59 | Emergency (ER) | payer OTHER ==
[2022-02-04 09:15] LABS: MUDS CUTOFF CONCENTRATIONS CUTOFF CONC BELOW:
[2022-02-04 09:18] LABS: BILIRUBIN,URINE NEGATIVE (NEGATIVE); GLUCOSE, URINE (UA) NEGATIVE (NEGATIVE); KETONES,URINE (UA) NEGATIVE (NEGATIVE); LEUKOCYTE ESTERASE, URINE NEGATIVE (NEGATIVE); NITRITE,URINE NEGATIVE (NEGATIVE); OCCULT BLOOD,URINE TRACE-LYSE (NEGATIVE); PROTEIN,URINE NEGATIVE (NEGATIVE); UROBILINOGEN,URINE 0.2 (NORMAL) E.U./dL (NORMAL)
[2022-02-04 09:19] LABS: CLARITY,URINE CLEAR (CLEAR)
[2022-02-04 09:27] LABS: BASOPHILS # (AUTO) 0.1 10^3/uL (0.0-0.1); BASOPHILS % (AUTO) 1.1 %; EOSINOPHILS % (AUTO) 0.8 %; HCT - HEMATOCRIT 44.5 % (42.0-52.0); HGB - HEMOGLOBIN 15.2 g/dL (14.0-18.0); LYMPHOCYTES % (AUTO) 37.1 %; MEAN CORPUSCULAR HEMOGLOBIN 31.3 pg (27.0-31.0); MEAN CORPUSCULAR HGB CONC 34.2 g/dL (32.0-36.0); MEAN CORPUSCULAR VOLUME 91.8 fL (80.0-94.0); MEAN PLATELET VOLUME 11.2 fL (7.4-11.4); MONOCYTES # (AUTO) 0.4 10^3/uL (0.0-1.0); MONOCYTES % (AUTO) 7.2 %; NEUTROPHILS # (AUTO) 2.8 10^3/uL (1.5-6.6); NEUTROPHILS % (AUTO) 53.2 %; PLT - PLATELET COUNT 237 10^3/uL (130-450); RED BLOOD COUNT 4.85 10^6/uL (4.70-6.10); RED CELL DISTRIBUTION WIDTH 12.8 % (12.0-15.0); WHITE BLOOD COUNT 5.3 x10^3/uL (4.8-10.8)
[2022-02-04 09:28] LABS: AMPHETAMINE SCREEN,URINE NEGATIVE (NEGATIVE); BARBITURATE SCREEN,UR NEGATIVE (NEGATIVE); BENZODIAZEPINES SCREEN, URINE NEGATIVE (NEGATIVE); COCAINE SCREEN URINE NEGATIVE (NEGATIVE); METHADONE SCREEN, URINE NEGATIVE (NEGATIVE); METHAMPHETAMINES SCREEN, URINE NEGATIVE (NEGATIVE); OPIATE SCREEN, URINE NEGATIVE (NEGATIVE); OXYCODONE SCREEN, URINE NEGATIVE (NEGATIVE); PROPOXYPHENE SCREEN, URINE NEGATIVE (NEGATIVE); THC CANNABINOID SCREEN, URINE NEGATIVE (NEGATIVE); TRICYCLIC ANTIDEPRESSANT,URINE NEGATIVE (NEGATIVE)
--- NOTE | 2022-02-04 09:41 | ED Physician Documentation ---
PD HPI MHE - Stated complaint Stated Complaint: SLURRED SPEECH/CONFUSION - Chief complaint Chief Complaint: MHE - History obtained from History obtained from: Patient, Other (chief) - History of Present Illness Primary symptom: Depression Pain level max: 0 Pain level now: 0 Contributing factors: Substance abuse - ETOH Similar symptoms before: Has not had sx before Recently seen: Not recently seen - Additional information Additional information: Patient is a 27-year-old male brought in by his command today for alcohol intoxication. Has a history of alcoholism, depression and suicidal ideation. Patient states that he is not suicidal or homicidal at this time. Denies any suicide attempt. He states he was drinking whiskey all day yesterday. He drank beer last night. States last drink was about 5 hours ago. He states that he was prescribed medication for depression in the past but has not been taking it. Review of Systems Ten Systems: 10 systems reviewed and negative Constitutional: denies: Fever, Chills Respiratory: denies: Cough GI: denies: Abdominal Pain, Nausea, Vomiting, Diarrhea Skin: denies: Rash Musculoskeletal: denies: Neck pain, Back pain Neurologic: denies: Headache PD PAST MEDICAL HISTORY - Past Medical History Past Medical History: Yes Cardiovascular: None Respiratory: None Neuro: None Endocrine/Autoimmune: None Psych: Depression, Anxiety, Other - Past Surgical History Past Surgical History: No - Present Medications Home Medications: Ambulatory Orders Medication Instructions Recorded Confirmed FLUoxetine [PROzac] 10 mg PO QPM 09/13/21 09/13/21 Trazodone HCl 100 mg PO BID 09/13/21 09/13/21 hydrOXYzine HCL [Hydroxyzine HCl] 25 mg PO Q4HR 09/13/21 09/13/21 - Allergies Allergies/Adverse Reactions: Allergies Allergy/AdvReac Type Severity Reaction Status Date / Time No Known Drug Allergies Allergy Verified 02/04/22 09:13 - Social History Does the pt smoke?: No Smoking Status: Never smoker Does the pt drink ETOH?: Yes Does the pt have substance abuse?: No - Immunizations Immunizations are current?: Yes - POLST Patient has POLST: No PD ED PE NORMAL - Vitals Vital signs reviewed: Yes - General General: Alert and oriented X 3, No acute distress - HEENT HEENT: Atraumatic, PERRL, Moist mucous membranes - Neck Neck: Supple, no meningeal sign - Cardiac Cardiac: RRR - Respiratory Respiratory: No respiratory distress, Clear bilaterally - Abdomen Abdomen: Soft, Non tender, Non distended - Derm Derm: Warm and dry - Extremities Extremities: No edema - Neuro Neuro: Alert and oriented X 3, 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, No motor deficit, No sensory deficit, Normal speech Eye Opening: Spontaneous Motor: Obeys Commands Verbal: Oriented GCS Score: 15 - Psych Psych: Normal mood, Normal affect Results - Vitals Vitals: Vital Signs - 24 hr 02/04/22 02/04/22 09:09 12:11 Temperature 36.3 C L 36.1 C L Heart Rate 88 93 Respiratory 20 12 Rate Blood Pressure 154/88 H 146/93 H O2 Saturation 98 97 Oxygen O2 Source Room air - Labs Labs: Laboratory Tests 02/04/22 02/04/22 02/04/22 09:09 09:20 09:20 WBC 5.3 RBC 4.85 Hgb 15.2 Hct 44.5 MCV 91.8 MCH 31.3 H MCHC 34.2 RDW 12.8 Plt Count 237 MPV 11.2 Neut # (Auto) 2.8 Lymph # (Auto) 2.0 [place] # (Auto) 0.4 Eos # (Auto) 0.0 Baso # (Auto) 0.1 Absolute Nucleated RBC 0.00 Nucleated RBC % 0.0 Sodium 143 Potassium 4.3 Chloride 103 Carbon Dioxide 28 Anion Gap 12.0 BUN 10 Creatinine 1.0 Estimated GFR (MDRD) 90 Glucose 118 H Calcium 8.9 Total Bilirubin < 0.2 L AST 32 ALT 35 Alkaline Phosphatase 57 Total Protein 7.9 Albumin 4.6 Globulin 3.3 Albumin/Globulin Ratio 1.4 Lipase 27 TSH Urine Color YELLOW Urine Clarity CLEAR Urine pH 5.0 Ur Specific [place] >=1.030 H Urine Protein NEGATIVE Urine Glucose (UA) NEGATIVE Urine Ketones NEGATIVE Urine Occult Blood TRACE-LYSE Urine Nitrite NEGATIVE Urine Bilirubin NEGATIVE Urine Urobilinogen 0.2 (NORMAL) Ur Leukocyte Esterase NEGATIVE Ur Microscopic Review NOT INDICATED Urine Culture Comments NOT INDICATED Salicylates < 6.0 Urine Opiates Screen NEGATIVE Ur Oxycodone Screen NEGATIVE Urine Methadone Screen NEGATIVE Ur Propoxyphene Screen NEGATIVE Acetaminophen < 10 L Ur Barbiturates Screen NEGATIVE Ur Tricyclics Screen NEGATIVE Ur Phencyclidine Scrn NEGATIVE Ur Amphetamine Screen NEGATIVE U Methamphetamines Scrn NEGATIVE U Benzodiazepines Scrn NEGATIVE Urine Cocaine Screen NEGATIVE U Cannabinoids Screen NEGATIVE Ethyl Alcohol 200.3 02/04/22 09:20 WBC RBC Hgb Hct MCV MCH MCHC RDW Plt Count MPV Neut # (Auto) Lymph # (Auto) [place] # (Auto) Eos # (Auto) Baso # (Auto) Absolute Nucleated RBC Nucleated RBC % Sodium Potassium Chloride Carbon Dioxide Anion Gap BUN Creatinine Estimated GFR (MDRD) Glucose Calcium Total Bilirubin AST ALT Alkaline Phosphatase Total Protein Albumin Globulin Albumin/Globulin Ratio Lipase TSH 1.40 Urine Color Urine Clarity Urine pH Ur Specific [place] Urine Protein Urine Glucose (UA) Urine Ketones Urine Occult Blood Urine Nitrite Urine Bilirubin Urine Urobilinogen Ur Leukocyte Esterase Ur Microscopic Review Urine Culture Comments Salicylates Urine Opiates Screen Ur Oxycodone Screen Urine Methadone Screen Ur Propoxyphene Screen Acetaminophen Ur Barbiturates Screen Ur Tricyclics Screen Ur Phencyclidine Scrn Ur Amphetamine Screen U Methamphetamines Scrn U Benzodiazepines Scrn Urine Cocaine Screen U Cannabinoids Screen Ethyl Alcohol PD MEDICAL DECISION MAKING - ED course Complexity details: reviewed results, re-evaluated patient, considered differential, d/w patient ED course: 27-year-old male presents to the emergency department stating that he has been drinking since last night. He denies any suicidal or homicidal ideation. His command is here with him. The patient does not want to pursue inpatient detox. Patient declines to speak with social work. Patient will follow up with the [facility] for further care and treatment. Patient counseled regarding signs and symptoms for which I believe and urgent re-evaluation would be necessary. Pat ient with good understanding of and agreement to plan and is comfortable going home at this time This document was made in part using voice recognition software. While efforts are made to proofread this document, sound alike and grammatical errors may occur. Departure - Departure Disposition: Home, Self Care Clinical Impression: Alcoholic intoxication Qualifiers: Complication of substance-induced condition: uncomplicated Qualified Code(s): F10.920 - Alcohol use, unspecified with intoxication, uncomplicated Condition: Good Instructions: ED Alcohol Intoxication Follow-Up: KAVON DASILVA MD [Primary Care Provider] - Within 1 week Comments: You need to stop drinking. You need to refrain from any further alcohol use. You need to follow-up as directed by your command. I would recommend that you be involved in a substance abuse program in the [place]. You should have AA meetings as well. You have refused to speak with social work today. You have denied any suicidal thoughts. Crisis Line and is available to talk to someone [email or web address] is also available to chat with someone online if you prefer. There are also many resources on this website and apps for your phone to help with your mental health You can also text the word START to [phone] to chat with someome via text. Discharge Date/Time: 02/04/22 12:12
[2022-02-04 09:46] LABS: ACETAMINOPHEN < 10 ug/mL (10-30); ALBUMIN 4.6 g/dL (3.2-5.5); ALBUMIN/GLOBULIN RATIO 1.4 (1.0-2.2); ALKALINE PHOSPHATASE 57 IU/L (42-121); ALT ALANINE AMINOTRANSFERASE 35 IU/L (10-60); AST ASPARTATE AMINOTRANSFERASE 32 IU/L (10-42); BILIRUBIN,TOTAL < 0.2 mg/dL (0.2-1.0); BUN - BLOOD UREA NITROGEN 10 mg/dL (6-20); CALCIUM 8.9 mg/dL (8.5-10.3); CARBON DIOXIDE - CO2 28 mmol/L (21-32); CHLORIDE 103 mmol/L (101-111); ETOH - ETHANOL 200.3 mg/dL; GFR - MDRD 90 (>89); GLUCOSE 118 mg/dL (70-100); LIPASE 27 U/L (22-51); POTASSIUM 4.3 mmol/L (3.5-5.0); SALICYLATE < 6.0 mg/dL; SODIUM 143 mmol/L (135-145); TOTAL PROTEIN 7.9 g/dL (6.7-8.2)
[2022-02-04 12:11] VITALS: BP 146/93
== END 2022-02-04 12:12 | disposition home or self-care (01) ==
LOC: ED 08:59
DX: F10.920 Alcohol use, unspecified with intoxication, uncomplicated (principal); F32.A Depression, unspecified
CPT/HCPCS: 36415; 80053; 80306; 80307; 80320; 80329; 81001; 81003; 83690; 84443; 85025; 87086; 99282; 99283